=== PATIENT | female | born 1940 | race African-American/Black ===

== ENCOUNTER 2019-11-14 13:08 | Emergency (ER) | payer MEDICARE, SELFPAY ==
[2019-11-14] VITALS (14 sets, daily range): BP systolic 123–251; BP diastolic 61–176; PULSE 64–162; RESP 18–51; TEMP 36.1–36.5; O2SAT 89–100
--- NOTE | ~2019-11-14 | CT_ITS ---
EXAMINATION: CTA abd aorta runoff DATE: 11/14/2019 18:02 INDICATION: Arterial occlusive disease. TECHNIQUE: Computed tomographic angiography (CTA) of the abdominal, pelvis, and both lower extremitie s was performed with 250 mL Omnipaque-350 intravenous contrast. Automated exposure control and iterat chris reconstruction technique were employed. The dose-length product was 3721 mGy-cm. Maximum intensit y projection 3D-reconstructions of the arteries were created by the [facility] COMPARISON: None. FINDINGS: ABDOMINAL AORTA AND ITS BRANCHES: There is moderate stenosis of celiac axis and superior mesenteric artery and the renal arteries. 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 There is a stent in the right common iliac art darshan. The common iliac arteries and right external iliac artery are not opacified. There is reconstitu tion of flow in left external iliac artery. There is some opacification of left profunda femoris. The re is some contrast opacification of left popliteal artery and peroneal artery. There is some opacifi cation of right common femoral artery and profunda femoris. There is some contrast opacification of r ight popliteal artery. ADDITIONAL FINDINGS: The visualized portions of the lung bases demonstrate airspace opacities in the upper lobes and wides pread groundglass opacities, consistent with pneumonia. There is a trace right pleural effusion. Card iomegaly is noted. No pericardial effusion. There are calcifications of the aortic valve. The liver a nd spleen are normal. The pancreas and adrenal glands are normal. There is cortical thinning of the k idneys. There is a 7 mm stone in left kidney. There are surgical changes of the stomach. The stomach is distended. There are calcified fibroids in the uterus. There is diverticulosis of the colon withou t evidence of diverticulitis. There are no pathologically enlarged lymph nodes. There is no free intr aperitoneal fluid. There is a chronic compression fracture of T11. IMPRESSION: 1. 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 Total occlusion of the majority of the pelvic a nd lower limb arteries. Some contrast opacification of left external iliac artery, left popliteal and peroneal arteries, right common femoral artery, right profunda femoris, and right popliteal artery. 2. Bilateral pneumonia predominantly involving the lower lobes. Reviewed, dictated and finalized at [facility]. IMPRESSION: 1. 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 Total occlusion of the ma jority of the pelvic and lower limb arteries. Some contrast opacification of le ft external iliac artery, left popliteal and peroneal arteries, right common fe moral artery, right profunda femoris, and right popliteal artery. 2. Bilateral pneumonia predominantly involving the lower lobes.
--- NOTE | ~2019-11-14 | XR_ITS ---
XR chest ET placement DATE: 11/14/2019 14:31 INDICATION: Shortness of breath TECHNIQUE: Portable supine AP view on 11/14/2019 at 1432 hours COMPARISON: 09/26/2018 AP chest FINDINGS: ET tube tip is approximately 1.8 cm above jeff; ideal range is 2-5 cm. Prominent bilateral pulmonary infiltrates are noted which are more prominent centrally and on the rig ht; pulmonary edema is likely. Bilateral pneumonia is not excluded. Minimal if any pleural effusion. No pneumothorax. Cardiomegaly. Aortic calcification. Surgical clips overlie both sides of the neck. Postoperative change of the left upper quadrant. Osteopenia. IMPRESSION: Prominent bilateral primarily central pulmonary infiltrates suggesting pulmonary edema ET tube approximately 1.7 as above jeff; ideal range is 2-5 cm. Reviewed, dictated and finalized at [facility]. Reviewed, dictated and finalized at [facility]. IMPRESSION: Prominent bilateral primarily central pulmonary infiltrates suggest ing pulmonary edema ET tube approximately 1.7 as above jeff; ideal range is 2-5 cm.
--- NOTE | ~2019-11-14 | XR_ITS ---
XR chest port-a-cath/central DATE: 11/14/2019 15:50 INDICATION: Confusion, altered mental status, pulmonary edema TECHNIQUE: Portable AP chest on 11/14/2019 at 1550 hours COMPARISON: 11/14/2019 portable AP chest at 1432 hours 09/26/2018 portable AP chest FINDINGS: There is moderate improvement of bilateral pulmonary infiltrates since 1432 hours today. Cardiomegaly. Interval placement of right internal jugular central venous catheter, the tip overlying the superior vena cava near the superior cavoatrial junction. ET tube tip 3.1 cm above jeff in satisfactory posi tion. Postoperative changes of the neck and left upper quadrant of the abdomen. Osteopenia. IMPRESSION: Moderate improvement of pulmonary edema since 1432 hours today ET tube in satisfactory position Interval placement of right internal jugular central venous catheter in superior vena cava near super ior cavoatrial junction; no pneumothorax Reviewed, dictated and finalized at [facility]. Reviewed, dictated and finalized at [facility]. IMPRESSION: Moderate improvement of pulmonary edema since 1432 hours today ET tube in satisfactory position Interval placement of right internal jugular central venous catheter in superio r vena cava near superior cavoatrial junction; no pneumothorax
--- NOTE | 2019-11-14 13:28 | ECG_ITS ---
Measurements Intervals [place] Rate: 128 P: IN: 0 QRS: 34 QRSD: 91 T: 78 QT: 316 QTc: 461 Interpretive Statements ATRIAL FIBRILLATION WITH RAPID VENTRICULAR RESPONSE NONSPECIFIC ST & T-WAVE ABNORMALITY- INF/LAT LEADS BASELINE ARTIFACT- V1, V4-V6 ABNORMAL ECG Electronically Signed On 11-14-2019 13:31:31 CDT by Jonnathan Laura D.O.
[2019-11-14 13:45] LABS: Alveolar/Arterial O2 Gradient 624.5 mmHg; Base Excess ABG -5.7 mEq/l (+/-2.0); Carboxyhemoglobin 0.8 % THb (0-2.0); Device NON-REBREATHER MASK; Fractional Inspired Oxygen 100 %; HCO3 ABG 17.6 mEq/l (22.0-26.0); Methemoglobin ABG 0.4 %THb (0-1.5); Modified Allen's Test Pass; Oxygen Content ABG 20.5 %vol (16.0-22.0); Oxygen Saturation ABG 90.8 % (95.0-100.0); Oxyhemoglobin 91.5 % THb (90.0-100.0); PCO2 ABG 29.6 mmHg (35.0-45.0); PO2 ABG 58.9 mmHg (80.0-100.0); PO2 FiO2 Ratio Arterial Blood 0.59 %; Reduced Hemoglobin 7.3 %THb (0-5.0); Site Drawn RIGHT RADIAL; pH ABG 7.393 (7.350-7.450)
[2019-11-14 14:26] LABS: Basophils Absolute Auto 0.1 K/mm3 (0.0-0.1); Basophils Percent Auto 1.1 % (0.2-1.2); Eosinophils Absolute Auto 0.2 K/mm3 (0-0.3); Eosinophils Percent Auto 1.8 % (0-4.4); Hematocrit 51.7 % (37.0-47.0); Hemoglobin 15.9 g/dL (12.0-15.0); Immature Granulocyte Absolute 0.07 K/mm3 (0.00-0.031); Immature Granulocyte Percent A 0.6 % (0-0.5); Immature Platelet Fraction Pct 5.3 % (0.9-11.2); Lymphocytes Absolute Auto 2.81 K/mm3 (0.9-3.2); Lymphocytes Percent Auto 23.3 % (18.3-44.2); Mean Corpuscular HGB Conc 30.8 g/dl (32-36); Mean Corpuscular Volume 94.2 fl (80-100); Mean Platelet Volume 10.4 fl (7.4-10.4); Monocytes Absolute Auto 0.6 K/mm3 (0.1-0.6); Monocytes Percent Auto 4.8 % (2.6-8.5); Neutrophils Absolute Auto 8.3 K/mm3 (1.3-6.7); Neutrophils Percent Auto 68.4 % (45.5-73.1); Platelet Count Result 156 k/mm3 (150-375); Red Blood Count 5.49 M/mm3 (4.2-5.4); Red Cell Distribution Width 13.7 % (11.5-14.5); White Blood Count 12.1 K/mm3 (4.5-10.0)
[2019-11-14 14:31] LABS: Platelet Estimate Adequate (Adequate)
[2019-11-14 14:32] LABS: Platelet Clumps Present
[2019-11-14 14:35] LABS: Partial Thromboplastin Time 20.1 SECONDS (22.3-36.8)
--- NOTE | 2019-11-14 15:10 | PC.NURSE ---
Pt needing emergent intubation per MD. Pt educated on risks/benefits and signed consent. 20mg etomadate and 120 succinylcholine given for sedation. Pt intubated at 1422 without difficulty. Portable chest xray obtained per order for verification. Pt moving arms and attempting to sit up so additional 100mcg fentanyl, 2mg versed and 50mg Rocuronium given for sedation prior to central line placement by dr apodaca at 1513.
--- NOTE | 2019-11-14 15:15 | PC.NURSE ---
Pt placed in hand soft limb restraints due to agitation and pulling at ET tube. MD aware. Distal circulation checked and pulses present in bilateral upper extremities.
[2019-11-14 15:17] LABS: Alveolar/Arterial O2 Gradient 624.8 mmHg; Base Excess ABG -7.9 mEq/l (+/-2.0); Carboxyhemoglobin 0.7 % THb (0-2.0); Device VENTILATOR; Fractional Inspired Oxygen 100 %; HCO3 ABG 17.8 mEq/l (22.0-26.0); Methemoglobin ABG 0.4 %THb (0-1.5); Oxygen Content ABG 17.8 %vol (16.0-22.0); Oxygen Saturation ABG 82.3 % (95.0-100.0); Oxyhemoglobin 79.9 % THb (90.0-100.0); PCO2 ABG 37.4 mmHg (35.0-45.0); PO2 ABG 50.8 mmHg (80.0-100.0); PO2 FiO2 Ratio Arterial Blood 0.51 %; Site Drawn RIGHT BRACHIAL; Total Hemoglobin 15.9 g/dL (12.0-18.0); pH ABG 7.295 (7.350-7.450)
[2019-11-14 15:18] LABS: Arterial Blood Gas PEEP 10 cmH2O; Arterial Blood Gas Tidal Volume 450 ml; Arterial Blood Gas Vent Mode ASSIST CONTROL; Arterial Blood Gas Ventilator rate 18 /MIN
[2019-11-14] MEDS: PROPOFOL IV EMULSION 100 ML 3.2 MG IV CONT (16:02)
[2019-11-14] MEDS: NITROGLYCERIN OINTMENT 1 INCH DOSE TRANSDERM (16:07)
[2019-11-14] MEDS: FUROSEMIDE INJ 100 MG/10 ML VIAL 80 MG IV PUSH (16:08)
[2019-11-14 16:23] LABS: Lactic Acid Reflex 4.3 mmol/L (0.7-2.1)
[2019-11-14 16:36] LABS: Blood Urea Nitrogen 24 mg/dL (7-17); Carbon Dioxide 22 mmol/L (22-30); Estimated CRCL calculation 39 ml/min; Estimated Glomerular Filt Rate 48; NT Pro B Type Natriuretic Pept 1120 PG/ML (5-100); Troponin I 0.837 ng/mL (0.000-0.034)
[2019-11-14 16:43] LABS: Alveolar/Arterial O2 Gradient 624.2 mmHg; Base Excess ABG -6.2 mEq/l (+/-2.0); Carboxyhemoglobin 0.8 % THb (0-2.0); Device VENTILATOR; Fractional Inspired Oxygen 100 %; HCO3 ABG 16.8 mEq/l (22.0-26.0); Methemoglobin ABG 0.3 %THb (0-1.5); Oxygen Content ABG 20.7 %vol (16.0-22.0); Oxygen Saturation ABG 91.8 % (95.0-100.0); Oxyhemoglobin 90.5 % THb (90.0-100.0); PCO2 ABG 27.8 mmHg (35.0-45.0); PO2 FiO2 Ratio Arterial Blood 0.61 %; Reduced Hemoglobin 8.4 %THb (0-5.0); Site Drawn RIGHT BRACHIAL; Total Hemoglobin 16.3 g/dL (12.0-18.0); pH ABG 7.399 (7.350-7.450)
[2019-11-14 16:44] LABS: Arterial Blood Gas PEEP 12 cmH2O; Arterial Blood Gas Vent Mode PRESSURE CONTROL; Arterial Blood Gas Ventilator rate 18 /MIN
[2019-11-14 16:49] LABS: Calcium 9.6 mg/dL (8.4-10.2); Chloride 112 mmol/L (98-107); Glucose 295 mg/dL (65-105); Potassium 3.6 mmol/L (3.4-5.0); Sodium 144 mmol/L (137-145)
--- NOTE | 2019-11-14 17:04 | ED.SOB ---
HPI - SOB/Dyspnea General Chief Complaint: Shortness of Breath/Dyspnea Stated Complaint: LEG PAIN/DIFFICULTY BREATHING Time Seen by Provider: 11/14/19 13:23 Source: patient and EMS Mode of arrival: EMS Limitations: clinical condition History of Present Illness HPI Narrative: This patient is a 79 year old female with history of CHF, chronic O2, atrial fibrillation who presents via EMS for evaluation of shortness of breath and bilateral leg pain. Patient presented in respiratory distress. She denies chest pain. She uses oxygen at home but she does not know the amount of O2. EMs found patient with oxygen saturation of 80% so she was placed on nonrebreather. Patient also found to have atrial fibrillation and she sttes she has history of afib. It is unclear is she takes anticoagulation. She reports bilateral leg pain but it is unclear if how long pain has been present. She reports her pain is in bilateral thighs down to her leg. Related Data Allergies Allergy/AdvReac Type Severity Reaction Status Date / Time vancomycin Allergy Unknown Unknown Verified 09/26/18 09:43 Review of Systems Review of Systems: ROS unobtainable: Yes unobtainable due to medical condition Cardiovascular: Cardiovascular: Denies chest pain Respiratory: Respiratory: Reports cough and Reports dyspnea Musculoskeletal: Musculoskeletal: Reports muscle cramps PMFSH Past Medical History Medical History (Updated 11/14/19 @ 20:49 by Whit Santos MD) Atrial fibrillation Congestive heart failure Diabetes mellitus Hypertension Surgical History Surgical History (Updated 11/14/19 @ 17:06 by Whit Santos MD) H/O section Exam Const: General: alert and ill appearing acutely Other: oriented to person and place HENMT: Head: normocephalic and atraumatic Mouth: Yes Normal oral and palatal mucosa present Eyes: Pupils: Equal, round and reactive pupils present EOM: EOMs intact bilaterally Chest: Chest palpation & inspection: normal inspection of the chest Resp: Effort & Inspection: labored, tachypneic and uses accessory muscles Auscultation: crackles diffuse Cardio: Rate: tachycardic Rhythm: abnormal rhythm irregularly irregular Heart sounds: no murmurs Other: bilateral lower extremity pitting edema, unable to doppler pedal pulse GI: GI Palp: Yes Soft to palpation, No Tenderness to palpation present (GI), No Guarding due to palpation present (GI) and No Rigid due to palpation Skin: Other: bilateral legs and feet warm initially and then feet became cold Neuro: General: CN's II-XI intact bilaterally Extrem: General: edema Course Reevaluation(s) Reevaluation #1: PAtient is in respiratory distress and she is hypoxic even on 15 L NRB. Date: 11/14/19 Time: 15:00 Reevaluation #2: Patient needs IV access so central line done. PAtient found to be hypoxic with oxygen saturation in 80% on 100% FIO2 so PEEP increased . Date: 11/14/19 Time: 16:00 Reevaluation #3: Patient's grandson has just arrived. I have discussed patient is critical with poor blood supply to limb .. Date: 11/14/19 Time: 19:00 Consultations Consultation #1: Called [facility] and they have no bed availability. [facility] surgeon is unavailable for a couple hours due to in surgery. I spoke with Dr. Ventura at [facility]. He accepts to [facility]. I gave report to Cheyanne in ER Date: 11/14/19 Time: 20:45 Vital Signs Vital signs: Vital Signs Temperature 97.7 F 11/14/19 13:20 Pulse Rate 134 H 11/14/19 13:20 Respiratory Rate 37 H 11/14/19 13:20 Blood Pressure 244/176 H 11/14/19 13:20 Pulse Oximetry 95 11/14/19 13:20 Temperature 97.3 F L 11/14/19 19:30 Pulse Rate 83 11/14/19 19:54 Respiratory Rate 18 11/14/19 19:54 Blood Pressure 142/93 H 11/14/19 19:54 Pulse Oximetry 99 11/14/19 19:54 Procedures Central Line Placement Right IJ: Central Line Date: 11/14/19 Central Line Time: 16:00
[2019-11-14 19:03] LABS: Albumin Level 3.4 g/dL (3.5-5.1); Alkaline Phosphatase 140 U/L (38-126); Aspartate Amino Transferase 28 U/L (14-36); Bilirubin,Total 0.6 mg/dL (0.2-1.3); Creatine Kinase 107 U/L (30-135)
[2019-11-14 19:04] LABS: Reflex Lactic Acid Yes or No Add Lactic
[2019-11-14 19:08] LABS: Alanine Aminotransferase 25 U/L (4-35)
[2019-11-14] MEDS: HEPARIN SODIUM 5,000 UNITS/ML VIAL 6000 UNITS IV PUSH (19:09)
[2019-11-14] MEDS: HEPARIN SOD/D5W 100 UNITS/ML 25,000 UNITS/250 ML BAG 14 UNITS IV CONT (19:10)
[2019-11-14 19:38] LABS: Lactic Acid 5.9 mmol/L (0.7-2.1)
--- NOTE | 2019-11-14 21:27 | PC.NURSE ---
Pt left via [facility] helicopter with Heparin, diltiazem, and propofol infusions running via transport pump. Mare notified.
[2019-11-15 13:11] LABS: SARS-CoV-2 RNA PCR Negative
== END 2019-11-14 21:27 | disposition short-term general hospital (02) ==
PROVIDERS: Emergency Provider General Practice
DX: J96.01 Acute respiratory failure with hypoxia (principal); I48.91 Unspecified atrial fibrillation; I50.9 Heart failure, unspecified; I11.0 Hypertensive heart disease with heart failure; E11.9 Type 2 diabetes mellitus without complications; Z99.81 Dependence on supplemental oxygen; J18.9 Pneumonia, unspecified organism; R94.31 Abnormal electrocardiogram [ECG] [EKG]; Z20.828 Contact with and (suspected) exposure to other viral communicable diseases
CPT/HCPCS: 31500; 36415; 36556; 36600; 75635; 80048; 80076; 82375; 82550; 82805; 83050; 83605; 83880; 84484; 85025; 85055; 85610; 85730; 87040; 87635; 93005; 96365; 96366; 96367; 96368; 96375; 96376; 99291; A9270; C1751; C9803; J0330; J0696; J1644; J1940; J2250; J2704; J3010; Q9967; U0003